=== PATIENT | female | born 1980 | race Caucasian/White ===

== ENCOUNTER 2018-04-29 17:09 | Emergency (ER) | payer SELFPAY ==
--- NOTE | 2018-04-29 17:45 | EDM.PDOC ---
ED HPI GENERAL MEDICAL PROBLEM - General Chief Complaint: Abdominal Pain Stated Complaint: HAVING CRAMPS Time Seen by Provider: 04/29/18 17:41 Source of Information: Reports: Patient History Limitations: Reports: No Limitations - History of Present Illness INITIAL COMMENTS - FREE TEXT/NARRATIVE: HISTORY AND PHYSICAL: History of present illness: Patient is a 37-year-old female here with complaint of "passing tissue ", vaginal bleeding and pelvic cramping x 1 week. Patient states that she does not believe she is although she is not on control and she is sexually active. She states that she has had light bleeding over the past 7 days and then today passed this tissue which she brought in with her today. She reports she is having cramping that is most painful on the right side. She denies any fevers, chills, nausea, vomiting, diarrhea, chest pain, shortness of breath, dysuria. She denies any past surgical history. Patient denies previous . I did look at the tissue which appears to be a small blood clot. Review of systems: As per history of present illness and below otherwise all systems reviewed and negative. Past medical history: Hepatitis C Surgical history: As per history of present illness and as reviewed below otherwise noncontributory. Social history: No reported history of drug or alcohol abuse. Family history: As per history of present illness and as reviewed below otherwise noncontributory. Physical exam: General: Patient sitting comfortably in no acute distress and nontoxic appearing HEENT: Atraumatic, normocephalic, pupils reactive, negative for conjunctival pallor or scleral icterus, mucous membranes moist, throat clear, neck supple, nontender, trachea midline. No meningeal signs. Lungs: Clear to auscultation, breath sounds equal bilaterally, chest nontender. Heart: S1S2, regular, negative for clicks, rubs, or overt murmur. Abdomen: Moderate right lower abdominal tenderness. Soft, nondistended. Negative for masses or hepatosplenomegaly. Negative for costovertebral tenderness. Pelvis: Stable nontender. Genitourinary: Deferred. Rectal: Deferred. Extremities: Atraumatic, negative for cords or calf pain. Neurovascular unremarkable. Neuro: Awake, alert, oriented. Cranial nerves II through XII unremarkable. Cerebellum unremarkable. Motor and sensory unremarkable throughout. Exam nonfocal. Notes: Discussed with Dr. Otto at 1620 to discuss preliminary results given by [facility]. 1644 - Dr. Otto called with US results, she will consult with patient in ED for care plan. 2029 - Dr. Otto consulted and examined patient. Patient determined not to be a surgical candidate at this time and will follow up with Dr. Otto in her clinic in 2 days. She advised to send the tissue patient brought in to pathology. Diagnostics: Urine hCG, CBC, CMP, ABO/Rh, serum hcg quant Pelvic ultrasound GC/chlamydia, cand/BV/trich Therapeutics: None Prescriptions: None Impression: Right adnexal mass Plan: 1. Follow up with Dr. Otto at your appointment on 05/01. 2. Return to ED as needed as discussed Definitive disposition and diagnosis as appropriate pending reevaluation and review of above. right lower abdomen' Pain Score (Numeric/FACES): 4 - Related Data Allergies Allergy/AdvReac Type Severity Reaction Status Date / Time Penicillins Allergy Rash Verified 04/29/18 17:17 Home Meds: Home Meds . [No Known Home Meds] 04/29/18 [History] Past Medical History - Past Health History Medical/Surgical History: Denies Medical/Surgical History HEENT History: Reports: None Cardiovascular History: Reports: None Respiratory History: Reports: None Gastrointestinal History: Reports: None Genitourinary History: Reports: None ESCROW ASSISTANT History: Reports: None Musculoskeletal History: Reports: None Neurological History: Reports: None Psychiatric History: Reports: None Endocrine/Metabolic History: Reports: None Dermatologic History: Reports: None - Infectious Disease History Infectious Disease History: Reports: Hepatitis C, MRSA - Past Surgical History HEENT Surgical History: Reports: None Female Surgical History: Reports: None Social & Family History - Family History Family Medical History: Noncontributory - Tobacco Use Smoking Status *Q: Current Every Day Smoker Years of Tobacco use: 23 Packs/Tins Daily: 1 - Recreational Drug Use Recreational Drug Use: No ED ROS GENERAL - Review of Systems Review Of Systems: ROS reveals no pertinent complaints other than HPI. ED EXAM, GI/ABD - Physical Exam Exam: See Below (see dictation) Course - Vital Signs Last Recorded V/S: Last Vital Signs Temp 36.8 C 04/29/18 17:18 Pulse 92 04/29/18 17:18 Resp 14 04/29/18 17:18 BP 119/81 04/29/18 17:18 Pulse Ox 100 04/29/18 17:18 - Orders/Labs/Meds Orders: Active Orders 24 hr Category Date Time Status Notify Provider Consults [RC] ASDIRECTED Care 04/29/18 18:55 Active Consult to Physician [CONS] Stat Cons 04/29/18 18:54 Active OB Ltd 1 or More Fetus [US] Stat Exams 04/29/18 17:38 Taken HCG QUALITATIVE,URINE [URCHEM] Stat Lab 04/29/18 17:13 Ordered Sodium Chloride 0.9% [Saline Flush] Med 04/29/18 19:28 Active 10 ml FLUSH ASDIRECTED PRN Sodium Chloride 0.9% [Saline Flush] Med 04/29/18 19:28 Active 2.5 ml FLUSH ASDIRECTED PRN Saline Lock Insert [OM.PC] Stat Oth 04/29/18 19:28 Ordered Medication Orders Sodium Chloride (Saline Flush) 10 ml FLUSH ASDIRECTED PRN PRN Reason: Keep Vein Open Sodium Chloride (Saline Flush) 2.5 ml FLUSH ASDIRECTED PRN PRN Reason: Keep Vein Open Labs: Laboratory Tests 04/29/18 04/29/18 04/29/18 Range/Units 17:13 17:50 17:50 WBC 10.07 (4.0-11.0) K/uL RBC 3.75 L (4.30-5.90) M/uL Hgb 11.0 L (12.0-16.0) g/dL Hct 32.6 L (36.0-46.0) % MCV 86.9 (80.0-98.0) fL MCH 29.3 (27.0-32.0) pg MCHC 33.7 (31.0-37.0) g/dL RDW Std Deviation 45.3 (28.0-62.0) fl RDW Coeff of Chris 14 (11.0-15.0) % Plt Count 416 H (150-400) K/uL MPV 10.50 (7.40-12.00) fL Neut % (Auto) 55.8 (48.0-80.0) % Lymph % (Auto) 31.5 (16.0-40.0) % [place] % (Auto) 9.0 (0.0-15.0) % Eos % (Auto) 3.1 (0.0-7.0) % Baso % (Auto) 0.6 (0.0-1.5) % Neut # (Auto) 5.6 (1.4-5.7) K/uL Lymph # (Auto) 3.2 H (0.6-2.4) K/uL [place] # (Auto) 0.9 H (0.0-0.8) K/uL Eos # (Auto) 0.3 (0.0-0.7) K/uL Baso # (Auto) 0.1 (0.0-0.1) K/uL Nucleated RBC % 0.0 /100WBC Nucleated RBCs # 0 K/uL Sodium 138 (136-145) mmol/L Potassium 3.8 (3.5-5.1) mmol/L Chloride 105 (98-107) mmol/L Carbon Dioxide 26.7 (21.0-32.0) mmol/L BUN 10 (7.0-18.0) mg/dL Creatinine 0.8 (0.6-1.0) mg/dL Est Cr Clr Drug Dosing 83.95 mL/min Estimated GFR (MDRD) > 60.0 ml/min Glucose 91 (74-106) mg/dL Calcium 8.8 (8.5-10.1) mg/dL Total Bilirubin 0.3 (0.2-1.0) mg/dL AST 22 (15-37) IU/L ALT 38 (14-63) IU/L Alkaline Phosphatase 65 (46-116) U/L Total Protein 7.5 (6.4-8.2) g/dL Albumin 3.6 (3.4-5.0) g/dL Globulin 3.9 H (2.0-3.5) g/dL Albumin/Globulin Ratio 0.9 L (1.3-2.8) HCG, Quant mIU/mL Urine HCG, Qual POSITIVE (NEGATIVE) Blood Type 04/29/18 04/29/18 Range/Units 17:50 17:50 WBC (4.0-11.0) K/uL RBC (4.30-5.90) M/uL Hgb (12.0-16.0) g/dL Hct (36.0-46.0) % MCV (80.0-98.0) fL MCH (27.0-32.0) pg MCHC (31.0-37.0) g/dL RDW Std Deviation (28.0-62.0) fl RDW Coeff of Chris (11.0-15.0) % Plt Count (150-400) K/uL MPV (7.40-12.00) fL Neut % (Auto) (48.0-80.0) % Lymph % (Auto) (16.0-40.0) % [place] % (Auto) (0.0-15.0) % Eos % (Auto) (0.0-7.0) % Baso % (Auto) (0.0-1.5) % Neut # (Auto) (1.4-5.7) K/uL Lymph # (Auto) (0.6-2.4) K/uL [place] # (Auto) (0.0-0.8) K/uL Eos # (Auto) (0.0-0.7) K/uL Baso # (Auto) (0.0-0.1) K/uL Nucleated RBC % /100WBC Nucleated RBCs # K/uL Sodium (136-145) mmol/L Potassium (3.5-5.1) mmol/L Chloride (98-107) mmol/L Carbon Dioxide (21.0-32.0) mmol/L BUN (7.0-18.0) mg/dL Creatinine (0.6-1.0) mg/dL Est Cr Clr Drug Dosing mL/min Estimated GFR (MDRD) ml/min Glucose (74-106) mg/dL Calcium (8.5-10.1) mg/dL Total Bilirubin (0.2-1.0) mg/dL AST (15-37) IU/L ALT (14-63) IU/L Alkaline Phosphatase (46-116) U/L Total Protein (6.4-8.2) g/dL Albumin (3.4-5.0) g/dL Globulin (2.0-3.5) g/dL Albumin/Globulin Ratio (1.3-2.8) HCG, Quant 159.0 mIU/mL Urine HCG, Qual (NEGATIVE) Blood Type A POSITIVE Meds: Medications Generic Name Dose Route Start Last Admin Trade Name Freq PRN Reason Stop Dose Admin Sodium Chloride 10 ml 04/29/18 19:28 Saline Flush FLUSH ASDIRECTED PRN Keep Vein Open Sodium Chloride 2.5 ml 04/29/18 19:28 Saline Flush FLUSH ASDIRECTED PRN Keep Vein Open Discontinued Medications Generic Name Dose Route Start Last Admin Trade Name Danyel PRN Reason Stop Dose Admin Sodium Chloride 1,000 mls @ 999 mls/hr 04/29/18 19:29 Normal Saline IV 04/29/18 20:29 STAT ONE Departure - Departure Time of Disposition: 20:35 Disposition: Home, Self-Care 01 Condition: Good Clinical Impression: Adnexal mass - Discharge Information Referrals: PCP,None [Primary Care Provider] - Forms: ED Department Discharge Additional Instructions: The following information is given to patients seen in the emergency department who are being discharged to home. This information is to outline your options for follow-up care. We provide all patients seen in our emergency department with a follow-up referral. The need for follow-up, as well as the timing and circumstances, are variable depending upon the specifics of your emergency department visit. If you don't have a primary care physician on staff, we will provide you with a referral. We always advise you to contact your personal physician following an emergency department visit to inform them of the circumstance of the visit and for follow-up with them and/or the need for any referrals to a consulting specialist. The emergency department will also refer you to a specialist when appropriate. This referral assures that you have the opportunity for follow-up care with a specialist. All of these measure are taken in an effort to provide you with optimal care, which includes your follow-up. Under all circumstances we always encourage you to contact your private physician who remains a resource for coordinating your care. When calling for follow-up care, please make the office aware that this follow-up is from your recent emergency room visit. If for any reason you are refused follow-up, please contact the [facility] Emergency Department at and asked to speak to the emergency department charge nurse. [facility] [address] [place] [address] 1. Follow up with Dr. Otto at your appointment on 05/01. 2. Return to ED as needed as discussed - My Orders Last 24 Hours: My Active Orders 04/29/18 17:13 HCG QUALITATIVE,URINE [URCHEM] Stat 04/29/18 17:38 OB Ltd 1 or More Fetus [US] Stat 04/29/18 18:54 Consult to Physician [CONS] Stat 04/29/18 18:55 Notify Provider Consults [RC] ASDIRECTED 04/29/18 19:28 Sodium Chloride 0.9% [Saline Flush] 10 ml FLUSH ASDIRECTED PRN Sodium Chloride 0.9% [Saline Flush] 2.5 ml FLUSH ASDIRECTED PRN Saline Lock Insert [OM.PC] Stat - Assessment/Plan Last 24 Hours: My Active Orders 04/29/18 17:13 HCG QUALITATIVE,URINE [URCHEM] Stat 04/29/18 17:38 OB Ltd 1 or More Fetus [US] Stat 04/29/18 18:54 Consult to Physician [CONS] Stat 04/29/18 18:55 Notify Provider Consults [RC] ASDIRECTED 04/29/18 19:28 Sodium Chloride 0.9% [Saline Flush] 10 ml FLUSH ASDIRECTED PRN Sodium Chloride 0.9% [Saline Flush] 2.5 ml FLUSH ASDIRECTED PRN Saline Lock Insert [OM.PC] Stat
[2018-04-29 18:25] LABS: CHLORIDE,CL 105 mmol/L (98-107); SODIUM,NA 138 mmol/L (136-145)
[2018-04-29] MEDS ORDERED: Sodium Chloride 0.9% 10 ML Syringe FLUSH PRN (19:28)
[2018-04-29] MEDS ORDERED: Sodium Chloride 0.9% 2.5 ML Syringe FLUSH PRN (19:28)
[2018-04-29] MEDS ORDERED: Sodium Chloride 0.9% 1,000 ML IV ONE (19:29)
--- NOTE | 2018-04-30 02:47 | ER ---
PRESENTING COMPLAINT: Right lower quadrant cramps with vaginal bleeding and passage of tissue HISTORY: The patient is a 37-year-old lady, who presented to the ER with complaints of vaginal bleeding, scanty flow for the last 7 days associated with right lower quadrant pain. The patient reported that the symptoms have not been bothersome, but what necessitated her presentation to the ER was the fact that she passed a tissue-like material which freaked her out. She denied knowledge of been - reporting that she thought bleeding was her period, although the pattern and duration is abnormal for her. test in the ER was positive. She does not use any form of control or condoms and is here visiting her boyfriend from [place]. She reports regular periods and said that she did have a normal period in March. Her periods usually last 5 days, heavy the first 2 days and then eases off. The associated right lower quadrant pain is mainly crampy, intermittent and It does not prevent her from getting around with her activities of daily living, and she has not needed to take any pain medication for it so far, but does sometimes when she gets sharp shooting pain from the right lower quadrant. She denied urinary symptoms and thought that she was constipated and had used laxative within the last 24 hours. REVIEW OF SYSTEMS: Noncontributory. PAST MEDICAL HISTORY: Hepatitis C diagnosed 3 years ago. GYNECOLOGICAL HISTORY: Regular cycles, 28 to 20 days lasting 3 to 5 days. Denied history of STDs. SOCIAL HISTORY: Smoker. Smokes at least a pack of cigarettes a day. Unemployed. Currently residing with her boyfriend here in [place], who works in an oil field. 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 Currently denies use of any illicit drugs. Alcohol use, minimal. FAMILY HISTORY: The patient is unsure of her family medical history. MEDICATIONS: None. ALLERGIES: Allergy to penicillin (unsure of the reaction). PHYSICAL EXAMINATION: VITAL SIGNS: Temperature 36.8, pulse rate 77, blood pressure 125/76, respiratory rate of 16, oxygen sats of 97% on room air. CHEST: Clear to auscultation bilaterally. CARDIOVASCULAR: Heart sounds 1 and 2, regular rhythm and rate. ABDOMEN: Soft with mild tenderness on the right side with no rebound, tenderness, or guarding. EXTREMITIES: Normal. VAGINAL EXAMINATION: No active bleeding seen on speculum. Uterus less than 6 weeks' size. Right sided adnexal fullness with mild tenderness. Genprobe and Affirm cultures were collected RECTAL EXAMINATION: Right adnexal mass palpable LABORATORY DATA: CBC: Hemoglobin of 11, hematocrit 32.6, platelet count 416. CMP: Sodium of 138, potassium of 3.8, BUN of 10, and creatinine of 0.8. AST 22, ALT 38, serum qED604. Serum hc.6 IMAGING: Pelvic ultrasound showed a normal-sized uterus of 6 cm with an endometrial stripe of 6 mm, and no definite intrauterine gestational sac visualized. There is an indeterminate right adnexal mass measuring about 4 x 1 x 5cm and reported as containing low resistant atrial flow, but no morphological normal right ovary was visualized. The left ovary was normal. There was a small amount of free fluid in the pelvis with internal echoes. Findings are suspicious for an ectopic ASSESSMENT AND PLAN: A 37-year-old patient with an unknown gestational age, presenting to the ER with vaginal bleeding and lower abdominal pain. The patient is hemodynamically stable and not in any obvious acute distress. The ultrasonographic findings are suspicious for an ectopic , but given the fact that the patient is hemodynamically stable with a quant of 159, no intrauterine gestational sac seen, I think that the best option here is the make a definite diagnosis before proceeding with a definite management, rather than proceeding with an emergency surgery now. I discussed the findings and the the management options with the patient of returning to the office in 48 hours for repeat hCG and an ultrasound to help establish a definite diagnosis and then formulate a management plan. She understands that she could still have a surgical intervention, but taking her back to the OR with an equivocal finding, I am not convinced is the right approach at this stage. I explained the risks involved with of an unknown location, ongoing miscarriage and a possible ectopic which rupture with devastating consequences thus stressing that she does need to be followed up. The discussion was also involved her sister, Yoselyn, an RN on the phone, who the patient had called up so that she could listen in and help her with decision making. She agreed return to the clinic in 48 hours for a repeat hCG and an ultrasound. We will call her from [facility] tomorrow to set up that appointment. Ectopic precautions were reviewed and stressed with the patient. JOEV / MODL /[id number] MTDD
--- NOTE | 2018-04-30 15:12 | US ---
EXAM DATE: 04/29/18 PATIENT'S AGE: 37 Patient: JW MATA Facility: [place], [place] Site . Site : 1980 Study: US OB Pelvis [id number] 6:27:16 PM Ordering Physician: Doctor Prince Final Report: INDICATION: VAGINAL BLEEDING IN HISTORY: Vaginal bleeding in . COMPARISON: None. TECHNIQUE: Pelvic ultrasound. Endovaginal imaging of the pelvis was obtained to better evaluate the endometrial complex and adnexa. Color/spectral Doppler was performed to evaluate blood flow to the adnexa. FINDINGS: There is a small amount of free fluid in the pelvis, which has internal echoes. This could represent hemoperitoneum. There is a nabothian cyst in the uterine cervix. This does not contain blood flow on color Doppler. The uterine corpus measures 4.0 x 3.9 x 6.6 cm. The endometrial complex measures 6 mm in dimension. There is no intrauterine gestational sac, yolk sac, or embryo. There is an indeterminate right adnexal mass, measuring 4.1 x 6.0 x 5.5 cm. This contains low resistance, arterial blood flow. A morphologically normal left ovary is not visualized. There is a left ovary visualized which is normal, measuring 2.8 x 1.6 x 2.4 cm. IMPRESSION: 1. Indeterminate right adnexal mass. 2. If the patient has a positive urine test, this finding is suspicious for an ectopic . 3. Suggest correlation with serum beta HCG, and gynecologic evaluation is suggested. Differential diagnosis includes ovarian torsion, which should be clinically distinct. 4. Small amount of complex fluid in the pelvis, which may indicate hemoperitoneum. 5. Report called to Susana Rain NP, Emergency Department, 04/29/18, 1836 hours. Dictated by Conrad Koo MD @ 04/29/2018 6:36:51 PM Dictated by: Conrad Koo MD @ 04/29/2018 18:37:02 (Electronic Signature) Report Signed by Proxy. SHAMIKA
== END 2018-04-29 20:57 | disposition home or self-care (01) ==
LOC: MW.ED 17:09
DX: O20.9 Hemorrhage in early pregnancy, unspecified (principal); O09.511 Supervision of elderly primigravida, first trimester; O99.331 Smoking (tobacco) complicating pregnancy, first trimester; N93.9 Abnormal uterine and vaginal bleeding, unspecified; F17.210 Nicotine dependence, cigarettes, uncomplicated; Z88.1 Allergy status to other antibiotic agents
CPT/HCPCS: 36415; 76815; 76815-26; 80053; 81025; 84702; 85025; 86900; 86901; 87480; 87491; 87510; 87591; 87660; 99283; 99284-25

== ENCOUNTER 2018-05-01 15:16 | Day surgery (SDC) | payer SELFPAY ==
[~2018-05-01 15:16] MED LIST: Bupivacaine 0.25% 10 ML SDV ONE; Vasopressin 20 Units/1 ML MDV ONE
[2018-05-01] MEDS ORDERED: Propofol 200 MG/20 ML SDV ONE (15:35)
[2018-05-01] MEDS ORDERED: Midazolam 1 MG/ML 2 ML SDV ONE (15:35)
[2018-05-01] MEDS ORDERED: fentaNYL 250 MCG/5 ML SDV ONE (15:36)
[2018-05-01] MEDS ORDERED: Glycopyrrolate 0.2 MG/ML SDV ONE (15:38)
[2018-05-01] MEDS ORDERED: Neostigmine Methylsulfate 1 MG/ML 5 ML Syringe ONE (15:38)
[2018-05-01] MEDS ORDERED: Ondansetron 4 MG/2 ML SDV ONE (15:38)
[2018-05-01] MEDS ORDERED: Rocuronium 10 MG/ML 10 ML Syringe ONE (15:38)
[2018-05-01] MEDS ORDERED: Dexamethasone 4 MG/ML 5 ML MDV ONE (15:38)
[2018-05-01] MEDS ORDERED: Succinylcholine 200 MG/10 ML MDV ONE (15:38)
--- NOTE | 2018-05-01 15:39 | PCM.PREANE ---
Preanesthetic Assessment - Procedure Proposed Procedure: laparoscopic removal of right ectopic - Anesthesia/Transfusion/Family Hx Anesthesia History: Unknown Family History of Anesthesia Reaction: Other (see below) Intubation History: Unknown - Review of Systems General: Other (ADHD, PTSD) Pulmonary: Other (smoker; hx asthma) Cardiovascular: No Symptoms Gastrointestinal: Abdominal Pain, Other (Hepatitis C) Neurological: No Symptoms Other: Reports: Easy Bruising, Liver Problems (hepatitisC), Depression (manic), Anxiety - Physical Assessment NPO Status Date: 05/01/18 NPO Status Time: 08:00 (breakfast) Height: 5 ft 4 in Weight: 149 lb ASA Class: 3E Mental Status: Alert & Oriented x3 Airway Class: Mallampati = 2 Dentition: Reports: Broken Tooth/Teeth, Caries Thyro-Mental Finger Breadths: 3 Mouth Opening Finger Breadths: 3 ROM/Head Extension: Limited/Partial Lungs: Clear to Auscultation, Normal Respiratory Effort Cardiovascular: Regular Rate, Regular Rhythm, No Murmurs - Allergies Allergies/Adverse Reactions: Allergies Allergy/AdvReac Type Severity Reaction Status Date / Time adhesive Allergy Rash Verified 05/01/18 16:02 Penicillins Allergy Rash Verified 05/01/18 12:26 - Blood Blood Available: Yes Product(s) Available: PRBC (T and S) - Anesthesia Plan Pre-Op Medication Ordered: None - Acknowledgements Anesthesia Type Planned: General Anesthesia (OETT) Pt an Appropriate Candidate for the Planned Anesthesia: Yes Alternatives and Risks of Anesthesia Discussed w Pt/Guardian: Yes Pt/Guardian Understands and Agrees with Anesthesia Plan: Yes PreAnesthesia Questionnaire - Past Health History Medical/Surgical History: Denies Medical/Surgical History HEENT History: Reports: None Cardiovascular History: Reports: None Respiratory History: Reports: None Gastrointestinal History: Reports: None Genitourinary History: Reports: None 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 [No Known Home Meds] 04/29/18 [History] - CURRENT (IN HOUSE) MEDS Current Meds: Current Medications Discontinued Medications Bupivacaine HCl (Sensorcaine-Mpf 0.25%) Confirm Administered Dose 20 ml .ROUTE .STK-MED ONE Stop: 05/01/18 13:31 Vasopressin (Vasopressin) Confirm Administered Dose 20 units .ROUTE .STK-MED ONE Stop: 05/01/18 13:32
[2018-05-01] MEDS ORDERED: Sodium Chloride 0.9% 20 ML ONE ×2 (18:11→19:43)
--- NOTE | 2018-05-01 18:18 | PCM.SN ---
- Free Text/Narrative Note: Multiple attempts made by lab and RNs to obtain iv access and Type and Screen for OR. 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 However, movement of the patient led to this infiltrating visibly in the neck. Therefore a central line via right subclavian was done. Sterile procedure followed with negative aspiration and access. Wire used and 3 lumen cath passed. CXR done. Waiting for this so we can proceed to surgery. See report and film.
--- NOTE | 2018-05-01 18:21 | PCM.SN ---
- Free Text/Narrative Note: Wet reading by me reveals right side central line in good position without pneumothorax. To be used for case and post op until discharged by Dr. Otto (we discussed this and agreed).
[2018-05-01] MEDS ORDERED: Phenylephrine/Normal Saline 100 MCG/ML 10 ML Syringe ONE (18:47)
[2018-05-01] MEDS ORDERED: fentaNYL 100 MCG/2 ML SDV IVPUSH PRN (18:48)
[2018-05-01] MEDS ORDERED: HYDROmorphone 2 MG/ML SDV ONE (19:43)
[2018-05-01] MEDS ORDERED: Ketorolac 30 MG/ML SDV ONE (20:16)
--- NOTE | 2018-05-01 20:27 | PCM.OPNOTE ---
- General Post-Op/Procedure Note Date of Surgery/Procedure: 05/01/18 Operative Procedure(s): Laparoscopic right salpingectomy Findings: Right ectopic , with less than 100mls (total) of blood clots around the right tube and in the cul the sac. Normal appearing uterus, left tube and ovaries bilaterally. Pre Op Diagnosis: Ectopic Post-Op Diagnosis: Right tubal Anesthesia Technique: General ET Tube Primary Surgeon: Sara Otto Certified Coding Specialist: Judith Driver (Medical student) Pathology: Right tube Fluid Replacement, Intraop: 1,400 EBL in mLs: 100 Complications: None Condition: Good
[2018-05-01] MEDS ORDERED: Lactated Ringers 1,000 ML IV SCH (20:45)
--- NOTE | 2018-05-01 21:05 | PCM.POSTAN ---
POST ANESTHESIA ASSESSMENT - MENTAL STATUS Mental Status: Alert, Oriented - RESPIRATORY Respiratory Status: Respiratory Rate WNL, Airway Patent, O2 Saturation Stable - CARDIOVASCULAR CV Status: Pulse Rate WNL, Blood Pressure Stable - GASTROINTESTINAL GI Status: No Symptoms - PAIN Pain Score: 5 - POST OP HYDRATION Hydration Status: Adequate & Stable
--- NOTE | 2018-05-01 21:38 | PCM48HPAN ---
Post Anesthesia Note - EVALUATION WITHIN 48HRS OF ANESTHETIC Vital Signs in Normal Range: Yes Patient Participated in Evaluation: Yes Respiratory Function Stable: Yes (O2 sats 99% RA) Airway Patent: Yes Cardiovascular Function Stable: Yes Hydration Status Stable: Yes Pain Control Satisfactory: No (see comment) Nausea and Vomiting Control Satisfactory: Yes Mental Status Recovered: Yes Resp Rate: 10 - COMMENTS/OBSERVATIONS Free Text/Narrative:: Patient states she is in pain and nurses were advised to call Dr. Otto for pain management as Dr. Otto indicated to RN in PACU that she did not want to give additional medications
[2018-05-01] MEDS ORDERED: Acetaminophen 500 MG Tab PO ONE (22:17)
[2018-05-01] MEDS ORDERED: Acetaminophen/oxyCODONE 325-5 MG Tab PO ONE (22:36)
[2018-05-01] MEDS ORDERED: Acetaminophen/oxyCODONE 325-5 MG Tab ONE (22:44)
--- NOTE | 2018-05-02 01:44 | OR ---
SURGEON: Sara Otto MD DATE OF PROCEDURE: 05/01/2018 SORTER OPERATOR: Bandar Christianson, medical student. PREOPERATIVE DIAGNOSIS: Ectopic . POSTOPERATIVE DIAGNOSIS: Right ectopic . PROCEDURE: Laparoscopic right salpingectomy with evacuation of hemoperitoneum. ANESTHESIA: General endotracheal. ESTIMATED BLOOD LOSS: Less than 100 mL of hemoperitoneum. IV FLUIDS: 1400 mL of crystalloid. FINDING: Normal-sized uterus with right adnexal mass. Laparoscopy showed blood clots encasing the fimbrial end of the right tube and the right ovary and also in the posterior cul-de-sac. The uterus, left fallopian tube, and both ovaries all appeared grossly normal. The right fallopian tube was enlarged with the ectopic encompassing approximately 50% of the tube. No active bleeding was noted. Normal upper abdomen survey INDICATIONS: The patient is a 37-year-old primigravid, who was unaware that she was and presented to ER over the weekend on April 29 to be exact with a history intermittent right lower quadrant pain, vaginal bleeding with passage of what she thought was tissue In the ER, the patient was hemodynamically stable. Her beta hCG was 159 . No IUP was seen on sonogram, there was a right adnexal mass, scant amount of free fluid in the cul de sac. Findings were suspicious for an ectopic . Based on the fact that she was hemodynamically stable, she was brought back to the clinic today and a repeat hCG was down to 55. Repeat ultrasound did show a right adnexal mass, complex in appearance, measuring about 5.3 cm with scanty amount of free fluid in the cul-de-sac. Based on these findings, an ectopic was diagnosed and the management options were discussed with the patient. The patient was not an ideal candidate for medical management so we proceed with surgery, after the benefits, risks and alternatives were discussed with her and her partner.. The patient accepted to proceed and an appropriate signed consent was obtained. DESCRIPTION OF PROCEDURE: The patient was taken to the operating room where induction of general anesthesia was performed. After adequate level of anesthesia, she was placed in the dorsal lithotomy position, prepped and draped in the usual sterile fashion for vaginal surgery. Appropriate time-out was held. The bladder was emptied examination under anesthesia was performed with the aforementioned findings. A bivalve speculum was placed into the vagina and anterior lip of the cervix was grasped with an Allis clamp. A Zumi uterine manipulator was placed after the uterus had been sounded to 7 cm. The speculum was removed and the refinery pipeline operator's gloves were changed. Attention was then turned to the patient's abdomen. The umbilical fold was infiltrated with 0.25% Marcaine and a 5 mm incision was made with a scalpel. A Veress needle was then introduced into the peritoneal cavity. The opening pressure was less than 5 mmHg. Pneumoperitoneum was then obtained with CO2 gas up to 15 mmHg. A 5 mm port and scope was then introduced into the abdominal cavity. The patient was placed in steep Trendelenburg and the fimbrial end of the right tube and the right ovary were covered with dark blood clots and I was. unable to visualize the tube entirely. An additional 5 mm port was placed in the left side under direct visualization, and then copious irrigation was performed and the clots were evacuated. Once this was done, the right tube was visualized adequately and was noted to be enlarged with the ectopic occupying approximately 50% of the tube. A decision to go ahead and perform a right salpingectomy was made at this stage. An additional 10 mm trocar was then placed in the right lower quadrant under direct visualization. A 5mm LigaSure device was then used to perform routine salpingectomy cauterizing and ligating along the mesosalpinx until the tube was detached from the corneal end. The EndoCatch device was then introduced through the right port and was advanced towards the specimen and the specimen placed into the bag under direct visualization and retrieved. The area of the salpingectomy was evaluated and found to be completely hemostatic. Further irrigation with normal saline was performed and further clots were evacuated. The patient was taken off the Trendelenburg. The instruments and ports were removed from the abdomen after the pneumoperitoneum had been released. The incisions were then closed with 4-0 Monocryl with subcuticular stitches. The Zumi manipulator was removed from the vagina and the area on which the Allis clamp was placed on the cervix was found to be hemostatic. The patient tolerated the procedure well and was taken to the recovery room in stable condition. JOLIE / VIBHA /[id number] SHAMIKA
--- NOTE | 2018-05-02 10:42 | CR ---
EXAM DATE: 05/01/18 PATIENT'S AGE: 37 Patient: JW MATA Facility: [place], [place] Site . Site : [id number] Study: XRay Chest [id number]/28/2018 6:15:01 PM Ordering Physician: Clarita Ruiz Final Report: INDICATION: Central line placement TECHNIQUE: Chest 1 view. 6:01 p.m. COMPARISON: None FINDINGS: Cardiovascular and mediastinum: Right-sided subclavian central line tip terminates at the cavoatrial junction. Heart size and vasculature are normal in caliber and appearance. Mediastinum is within normal limits. Lungs and pleural space: Lungs are clear. No sign of infiltrate or mass. No sign of pleural effusion. No pneumothorax. Bones and soft tissues: No significant findings. IMPRESSION: Right-sided subclavian central line tip terminates at the cavoatrial junction. Dictated by Ronald Jordan MD @ 05/01/2018 6:24:49 PM Dictated by: Ronald Jordan MD @ 05/01/2018 18:24:54 (Electronic Signature) Report Signed by Proxy. [facility]
== END 2018-05-01 23:30 | disposition home or self-care (01) ==
LOC: MW.SDS 15:16
PROVIDERS: ATTEND Obstetrics & Gynecology
DX: O00.101 Right tubal pregnancy without intrauterine pregnancy (principal); J45.909 Unspecified asthma, uncomplicated; F43.10 Post-traumatic stress disorder, unspecified; F90.9 Attention-deficit hyperactivity disorder, unspecified type; Z88.0 Allergy status to penicillin; Z91.048 Other nonmedicinal substance allergy status
CPT/HCPCS: 36415; 59151; 71045; 86850; 86900; 86901; A9270; J0330; J1100; J1170; J1885; J2250; J2370; J2405; J2704; J3010; J3490